=== PATIENT | female | born 1965 | race Two or more races ===

== ENCOUNTER 2022-05-10 20:09 | Emergency (ER) | payer OTHER ==
[~2022-05-10] VITALS: Ht 152.4 cm; Wt 97.5 kg
[~2022-05-10 20:09] MED LIST: NORVASC5 MG PO
[2022-05-10] MEDS ORDERED: TOPROL XL50 M1 (20:36)
[2022-05-11] MEDS ORDERED: PEPCID AC20 MG PO (00:51)
[2022-05-11] MEDS ORDERED: NORFLEX100MG PO (00:51)
[2022-05-11] MEDS ORDERED: CARAFATE1 GM PO (00:51)
== END 2022-05-11 01:00 | disposition home or self-care (01) ==
LOC: ER 20:09
DX: M62.838 Other muscle spasm (principal); R07.89 Other chest pain; M54.2 Cervicalgia; R51.9 Headache, unspecified; I10 Essential (primary) hypertension; E03.9 Hypothyroidism, unspecified; Z88.6 Allergy status to analgesic agent; Z20.822 Contact with and (suspected) exposure to COVID-19

== ENCOUNTER 2022-06-07 09:40 | Outpatient (CLI) | payer OTHER ==
[~2022-06-07 09:40] MED LIST changes: +CARAFATE1 GM PO; +NORFLEX100MG PO; +PEPCID AC20 MG PO; +TOPROL XL50 M1
== END 2022-06-07 09:41 | disposition home or self-care (01) ==
LOC: LAB 09:40
PROVIDERS: ATTEND Obstetrics & Gynecology
DX: D64.9 Anemia, unspecified (principal); E03.9 Hypothyroidism, unspecified; E16.2 Hypoglycemia, unspecified; N39.0 Urinary tract infection, site not specified; E78.2 Mixed hyperlipidemia; N91.1 Secondary amenorrhea; E55.9 Vitamin D deficiency, unspecified

== ENCOUNTER → 2022-12-20 09:05 | Outpatient (CLI) | payer OTHER | END | disposition home or self-care (01) | LOC: LAB 09:05 | PROVIDERS: ATTEND Neuromusculoskeletal Medicine, Sports Medicine | DX: I10 Essential (primary) hypertension (principal); D64.9 Anemia, unspecified; E11.9 Type 2 diabetes mellitus without complications; N85.5 Inversion of uterus ==

== ENCOUNTER 2023-01-14 16:54 | Emergency (ER) | payer OTHER ==
[~2023-01-14] VITALS: Ht 160 cm; Wt 83.9 kg
[2023-01-14] MEDS ORDERED: SYNTHROID200 MCG (17:17)
== END 2023-01-14 22:47 | disposition home or self-care (01) ==
LOC: ER 16:54
DX: R07.9 Chest pain, unspecified (principal); I10 Essential (primary) hypertension; E03.9 Hypothyroidism, unspecified; Z88.6 Allergy status to analgesic agent; Z20.822 Contact with and (suspected) exposure to COVID-19

== ENCOUNTER 2023-01-22 14:30 | Outpatient (CLI) | payer OTHER ==
[~2023-01-22 14:30] MED LIST changes: +SYNTHROID200 MCG
== END 2023-01-22 14:35 | disposition home or self-care (01) ==
LOC: RAD 14:30
PROVIDERS: ATTEND Internal Medicine
DX: M62.81 Muscle weakness (generalized) (principal)

== ENCOUNTER 2023-05-30 09:30 | Outpatient (CLI) | payer OTHER | END 2023-05-30 09:36 | disposition home or self-care (01) | LOC: RAD 09:30 | PROVIDERS: ATTEND General Practice | DX: M25.562 Pain in left knee (principal) ==

== ENCOUNTER 2023-06-27 10:13 | Outpatient (CLI) | payer OTHER | END 2023-06-27 10:24 | disposition home or self-care (01) | LOC: RAD 10:13 | PROVIDERS: ATTEND General Practice | DX: M77.30 Calcaneal spur, unspecified foot (principal) ==

== ENCOUNTER → 2023-09-19 08:37 | Outpatient (CLI) | payer OTHER ==
[2023-09-19 09:36] LABS: PH,URINE 6.5 (5.0-8.0); URINE APPEARANCE Clear; URINE BILIRRUBIN Negative (NEGATIVE); URINE BLOOD Negative; URINE COLOR Yellow; URINE GLUCOSE Negative (NEGATIVE); URINE LEUKOCYTE Negative; URINE NITRATE Negative; URINE PROTEIN Negative (NEGATIVE)
[2023-09-19 09:40] LABS: URINE BACTERIA 815.1 uL (0.0-1933); URINE EPITHELIAL CELLS 25.6 uL (0.0-38.8); URINE RBC 17.6 uL (0.0-20.8); URINE WBC 12.6 uL (0.0-23.2)
[2023-09-19 09:55] LABS: HEMATOCRIT 37.9 % (36.0-45.00); HEMOGLOBIN 13.1 g/dL (12.0-15.00); MEAN CORPUSCULAR HEMOGLOBIN 32.1 pg (27.00-32.0); MEAN CORPUSCULAR HGB CONC 34.5 g/dl (32.0-36.0); PLATELET COUNT 318 K/uL (150-450); RED BLOOD COUNT 4.08 M/uL (4.00-6.00); RED CELL DISTRIBUTION WIDTH 13.2 % (11.5-14.5)
[2023-09-19 09:56] LABS: ERYTHROCYTE SEDIMENTATION RATE 15 mm/hr
[2023-09-19 10:22] LABS: ALBUMIN 3.4 gm/dL (3.4-5.0); BILIRUBIN TOTAL 0.61 mg/dL (0.3-1.2); CALCIUM 8.4 mg/dL (8.5-10.1); CHOL HDL RATIO 4.3 (0-5.0); CREATININE SERUM 0.61 mg/dL (0.55-1.02); GFR 100.74; GLOBULINA 3.5 G/DL (2.4-3.5); POTASSIUM 3.86 mEq/L (3.5-5.1); T4 TOTAL 9.38 UG/DL (4.8-13.9); TOTAL PROTEIN 6.9 gm/dL (6.4-8.2)
[2023-09-19 10:51] LABS: TSH 0.054 uIU/mL (0.358-3.74)
[2023-09-21 10:25] LABS: T3 TOTAL 0.844 ng/ml (0.846-2.02); VITAMIN D3 25 HYDROXY 30.47 ng/ml (30-120)
== END | disposition home or self-care (01) ==
LOC: LAB 08:37
PROVIDERS: ATTEND Internal Medicine Gastroenterology
DX: R19.8 Other specified symptoms and signs involving the digestive system and abdomen (principal); Z12.11 Encounter for screening for malignant neoplasm of colon; E03.9 Hypothyroidism, unspecified; E78.00 Pure hypercholesterolemia, unspecified; N39.0 Urinary tract infection, site not specified; E55.9 Vitamin D deficiency, unspecified; D62 Acute posthemorrhagic anemia; E11.9 Type 2 diabetes mellitus without complications; M25.50 Pain in unspecified joint; M06.9 Rheumatoid arthritis, unspecified; R10.12 Left upper quadrant pain

== ENCOUNTER 2023-09-26 10:11 | Outpatient (CLI) | payer OTHER ==
[2023-09-26 12:31] LABS: ob NEGATIVE (NEGATIVE)
== END 2023-09-26 10:12 | disposition home or self-care (01) ==
LOC: LAB 10:11
PROVIDERS: ATTEND Internal Medicine Gastroenterology
DX: R19.8 Other specified symptoms and signs involving the digestive system and abdomen (principal); Z12.11 Encounter for screening for malignant neoplasm of colon; E03.9 Hypothyroidism, unspecified; E78.00 Pure hypercholesterolemia, unspecified; N39.0 Urinary tract infection, site not specified; E55.9 Vitamin D deficiency, unspecified; D62 Acute posthemorrhagic anemia; E11.9 Type 2 diabetes mellitus without complications; M25.50 Pain in unspecified joint; M06.9 Rheumatoid arthritis, unspecified; R10.12 Left upper quadrant pain

== ENCOUNTER 2024-06-24 09:34 | Outpatient (CLI) | payer OTHER ==
[2024-06-24 10:23] LABS: HEMATOCRIT 36.4 % (36.0-45.00); HEMOGLOBIN 12.4 g/dL (12.0-15.00); MEAN CELL VOLUME 94.8 fL (80.00-100.00); MEAN CORPUSCULAR HEMOGLOBIN 32.3 pg (27.00-32.0); PLATELET COUNT 300 K/uL (150-450); RED BLOOD COUNT 3.84 M/uL (4.00-6.00); RED CELL DISTRIBUTION WIDTH 13.2 % (11.5-14.5)
[2024-06-24 10:31] LABS: PH,URINE 6.5 (5.0-8.0); URINE APPEARANCE Clear; URINE BILIRRUBIN Negative (NEGATIVE); URINE BLOOD Negative; URINE COLOR Yellow; URINE GLUCOSE Negative (NEGATIVE); URINE LEUKOCYTE Negative; URINE NITRATE Negative; URINE PROTEIN Negative (NEGATIVE); URINE UROBILINOGEN 0.2 E.U./dl
[2024-06-24 10:35] LABS: URINE BACTERIA 1064.5 uL (0.0-1933); URINE EPITHELIAL CELLS 30.4 uL (0.0-38.8); URINE RBC 9.9 uL (0.0-20.8); URINE WBC 5.7 uL (0.0-23.2)
[2024-06-24 11:22] LABS: ALBUMIN 3.2 gm/dL (3.4-5.0); BILIRUBIN TOTAL 0.46 mg/dL (0.3-1.2); CALCIUM 8.6 mg/dL (8.5-10.1); CHOL HDL RATIO 3.7 (0-5.0); CREATININE SERUM 0.59 mg/dL (0.55-1.02); GFR 104.69; GLOBULINA 3.2 G/DL (2.4-3.5); POTASSIUM 4.1 mEq/L (3.5-5.1); TOTAL PROTEIN 6.4 gm/dL (6.4-8.2)
[2024-06-24 11:50] LABS: T4 FREE 1.28 NG/ML (0.76-1.46)
[2024-06-24 11:51] LABS: TSH 0.055 uIU/mL (0.358-3.74)
== END 2024-06-24 09:43 | disposition home or self-care (01) ==
LOC: LAB 09:34
DX: E55.9 Vitamin D deficiency, unspecified (principal); E03.9 Hypothyroidism, unspecified; E79.0 Hyperuricemia without signs of inflammatory arthritis and tophaceous disease; E78.2 Mixed hyperlipidemia; I11.9 Hypertensive heart disease without heart failure; R73.03 Prediabetes

== ENCOUNTER 2024-08-06 09:12 | Outpatient (CLI) | payer OTHER | END 2024-08-06 09:19 | disposition home or self-care (01) | LOC: RAD 09:12 | DX: M99.01 Segmental and somatic dysfunction of cervical region (principal); M99.02 Segmental and somatic dysfunction of thoracic region; M99.03 Segmental and somatic dysfunction of lumbar region ==

== ENCOUNTER 2024-11-15 19:20 | Emergency (ER) | payer OTHER ==
[~2024-11-15] VITALS: Ht 160 cm; Wt 76.7 kg
[2024-11-15] MEDS ORDERED: BISOPROLOL-HCT1 EAC1 PO (19:46)
[2024-11-15] MEDS ORDERED: AVAPRO150 MG PO (19:46)
[2024-11-15] MEDS ORDERED: DEXAMETHASONE SODIUM PHOSPHATE 4 MG/ML VIAL IM STA (20:56)
[2024-11-15] MEDS ORDERED: ORPHENADRINE CITRATE 30 MG/ML AMPUL IM STA (20:57)
[2024-11-15 21:23] LABS: HEMATOCRIT 38.5 % (36.0-45.00); HEMOGLOBIN 12.9 g/dL (12.0-15.00); MEAN CELL VOLUME 95.8 fL (80.00-100.00); MEAN CORPUSCULAR HGB CONC 33.4 g/dl (32.0-36.0); PLATELET COUNT 285 K/uL (150-450); RED BLOOD COUNT 4.02 M/uL (4.00-6.00); RED CELL DISTRIBUTION WIDTH 12.8 % (11.5-14.5)
[2024-11-15 22:14] LABS: CALCIUM 9.2 mg/dL (8.5-10.1); CREATININE SERUM 1.2 mg/dL (0.55-1.02); GFR 45.98; POTASSIUM 3.91 mEq/L (3.5-5.1)
[2024-11-15] MEDS ORDERED: GABAPENTIN100 M2 PO (22:35)
[2024-11-15] MEDS ORDERED: MEDROLPACK PO (22:35)
[2024-11-15] MEDS ORDERED: ZANAFLEX4 M1 PO (22:35)
== END 2024-11-15 23:03 | disposition home or self-care (01) ==
LOC: ER 19:22
PROVIDERS: General Practice
DX: M54.12 Radiculopathy, cervical region (principal); I10 Essential (primary) hypertension; E03.9 Hypothyroidism, unspecified; Z88.6 Allergy status to analgesic agent

== ENCOUNTER 2024-11-19 07:20 | Outpatient (CLI) | payer OTHER ==
[~2024-11-19 07:20] MED LIST changes: +AVAPRO150 MG PO; +BISOPROLOL-HCT1 EAC1 PO; +GABAPENTIN100 M2 PO; +MEDROLPACK PO; +ZANAFLEX4 M1 PO
[2024-11-19 08:55] LABS: PH,URINE 5.5 (5.0-8.0); URINE APPEARANCE Clear; URINE BILIRRUBIN Negative (NEGATIVE); URINE BLOOD Negative; URINE COLOR Yellow; URINE GLUCOSE Negative (NEGATIVE); URINE KETONE Negative (NEGATIVE); URINE LEUKOCYTE Negative; URINE NITRATE Negative; URINE PROTEIN Negative (NEGATIVE); URINE UROBILINOGEN 0.2 E.U./dl
[2024-11-19 08:58] LABS: URINE BACTERIA 375.7 uL (0.0-1933); URINE EPITHELIAL CELLS 8.6 uL (0.0-38.8); URINE RBC 9.8 uL (0.0-20.8); URINE WBC 6.1 uL (0.0-23.2)
[2024-11-19 09:07] LABS: ALBUMIN 3.4 gm/dL (3.4-5.0); BILIRUBIN TOTAL 0.46 mg/dL (0.3-1.2); CALCIUM 8.7 mg/dL (8.5-10.1); CREATININE SERUM 0.7 mg/dL (0.55-1.02); GFR 85.65; GLOBULINA 3.2 G/DL (2.4-3.5); POTASSIUM 3.78 mEq/L (3.5-5.1); TOTAL PROTEIN 6.6 gm/dL (6.4-8.2)
[2024-11-19 09:23] LABS: HEMATOCRIT 35.9 % (36.0-45.00); HEMOGLOBIN 12.1 g/dL (12.0-15.00); MEAN CELL VOLUME 94.3 fL (80.00-100.00); MEAN CORPUSCULAR HEMOGLOBIN 31.9 pg (27.00-32.0); MEAN CORPUSCULAR HGB CONC 33.8 g/dl (32.0-36.0); PLATELET COUNT 281 K/uL (150-450); RED CELL DISTRIBUTION WIDTH 13.1 % (11.5-14.5)
[2024-11-19 09:36] LABS: ERYTHROCYTE SEDIMENTATION RATE 19 mm/hr
== END 2024-11-19 07:28 | disposition home or self-care (01) ==
LOC: LAB 07:20
DX: M32.9 Systemic lupus erythematosus, unspecified (principal)

== ENCOUNTER 2025-02-13 16:35 | Outpatient (CLI) | payer OTHER | END 2025-02-13 16:37 | disposition home or self-care (01) | LOC: LAB 16:35 | DX: R79.9 Abnormal finding of blood chemistry, unspecified (principal); J06.9 Acute upper respiratory infection, unspecified ==

== ENCOUNTER 2025-06-10 09:00 | Outpatient (CLI) | payer OTHER ==
[2025-06-10 09:29] LABS: BASO % 0.4 % (0.1-1.2); EOS # 0.20 (0.04-0.54); EOS % 3.7 % (0.7-7.0); LYMPH # 2.84 (1.18-3.74); LYMPH % 52.1 % (19.3-53.1); MEAN PLATELET VOLUME 9.20 fl (9.4-12.4); MONO # 0.30 (0.24-0.82); MONO % 5.5 % (4.7-12.5); NEUT # 2.08 (1.56-6.13); NEUT % 38.1 % (34.0-71.1); RED CELL DISTRIBUTION WIDTH 11.9 % (11.6-14.4)
[2025-06-10 09:30] LABS: URINE APPEARANCE Clear; URINE BILIRRUBIN Negative (NEGATIVE); URINE BLOOD Negative; URINE COLOR Yellow; URINE GLUCOSE Negative (NEGATIVE); URINE KETONE Negative (NEGATIVE); URINE LEUKOCYTE Trace; URINE NITRATE Negative; URINE PROTEIN Negative (NEGATIVE); URINE UROBILINOGEN 0.2 E.U./dl
[2025-06-10 09:34] LABS: URINE BACTERIA 2016.9 uL (0.0-1933); URINE EPITHELIAL CELLS 48.9 uL (0.0-38.8); URINE RBC 8.6 uL (0.0-20.8); URINE WBC 25.8 uL (0.0-23.2)
[2025-06-10 09:35] LABS: URINE CAST 0.43 uL (0.0-1.40)
[2025-06-10 09:59] LABS: ALT/SGPT 26.0 U/L (12-78); AST/SGOT 15.0 U/L (15-37); BILIRUBIN TOTAL 0.58 mg/dL (0.3-1.2); BUN CREA RATIO 23.0 (7.0-25.0); CHOL HDL RATIO 3.6 (0-5.0); CREATININE SERUM 0.56 mg/dL (0.55-1.02); GFR 110.8; GLOBULINA 3.4 G/DL (2.4-3.5); GLUCOSE FASTING 86.0 mg/dL (65-100); HDL 51.0 mg/dl (40-60); LDL 107.0 mg/dl (0-130); OSMOLALITY SERUM 290.0 MOSM/KG (275-295); VLDL 24.0 (0-39)
[2025-06-10 10:58] LABS: T4 FREE 1.12 NG/ML (0.76-1.46)
[2025-06-10 10:59] LABS: TSH 0.16 uIU/mL (0.358-3.74)
== END 2025-06-10 09:06 | disposition home or self-care (01) ==
LOC: LAB 09:00
PROVIDERS: ATTEND General Practice
DX: R73.03 Prediabetes (principal); E78.2 Mixed hyperlipidemia; E55.9 Vitamin D deficiency, unspecified; E03.9 Hypothyroidism, unspecified; E79.0 Hyperuricemia without signs of inflammatory arthritis and tophaceous disease